=== PATIENT | female | born 1950 | race Caucasian/White ===

== ENCOUNTER 2019-02-02 08:09 | Outpatient (CLI) | payer MEDICARE, OTHER ==
--- NOTE | 2019-02-10 08:44 | Mammography Report ---
Reason: SCREENING MAMMO Procedure Date: 02/02/2019 Accession Number: [id number] / [id number] Procedure: BROCK - Screening Mammo w/[facility] CPT Code: FULL RESULT: EXAM: Screening Mammo w/[facility] DATE: 02/02/2019 8:56 AM CLINICAL HISTORY: Screening encounter. History of benign left breast biopsy. No reported risk factors. TECHNIQUE: (B) - Bilateral CC and MLO views were obtained. COMPARISON: 01/23/2016 through 10/23/2012. PARENCHYMAL PATTERN: (D) - The breasts demonstrate heterogeneously dense fibroglandular parenchyma bilaterally. FINDINGS: There are coarse typically benign calcifications. There are no suspicious masses, calcifications, or areas of distortion. IMPRESSION: Benign findings. BI-RADS category 2. RECOMMENDATION: (ANNUAL) - Recommend routine annual screening mammography. BI-RADS CATEGORY: (2) - Benign Findings. STANDARD QUALIFYING STATEMENTS: 1. This examination was not reviewed with the aid of Computer-Aided Detection (CAD). 2. A negative or benign imaging report should not preclude biopsy if clinically suspicious findings are present. 3. Dense breasts may obscure an underlying neoplasm. 4. This examination was reviewed with the aid of 3D breast imaging (tomosynthesis).
== END 2019-02-02 08:10 | disposition home or self-care (01) ==
LOC: DI 08:09
PROVIDERS: ATTEND Nurse Practitioner Family
DX: Z12.31 Encounter for screening mammogram for malignant neoplasm of breast (principal)
CPT/HCPCS: 77063; 77067

== ENCOUNTER 2019-02-02 08:12 | Outpatient (CLI) | payer MEDICARE, OTHER ==
--- NOTE | 2019-02-02 17:17 | DEXA Report ---
Reason: OSTEOPENIA, DISORDER OF BONE DENSITY STRUCTURE Procedure Date: 02/02/2019 Accession Number: [id number] / [id number] Procedure: DEX - Dexa Spine and/or Hip CPT Code: FULL RESULT: EXAM: Dexa Spine and/or Hip DATE: 02/02/2019 9:48 AM CLINICAL HISTORY: OSTEOPENIA, DISORDER OF BONE DENSITY STRUCTURE TECHNIQUE: Dual energy x-ray absorptiometry (DXA) was performed on a ML[employer] Squared System. Regions measured are the AP Spine, femoral neck, and if needed forearm. COMPARISON: None. In accordance with the International Society for Clinical Densitometry (ISCD) guidelines, data from previous exams may be reanalyzed using current recommendations and techniques. This is done to allow a more accurate basis for comparison with the current study. FINDINGS: The data for the lumbar spine is as follows: BMD (g/cm/cm) T-SCORE Z-SCORE REGION L1 1.018 -0.9 0.2 L2 0.875 -2.7 -1.5 L3 0.977 -1.9 -0.7 L4 0.847 -2.9 -1.8 TOTAL 0.924 -2.1 -1.0 NOTE: All evaluable vertebrae are used for classification The data for the hip is as follows: BMD (g/cm/cm) T-SCORE Z-SCORE REGION Neck 0.962 -0.5 0.8 TOTAL 1.028 0.2 1.2 NOTE: The femoral neck or total proximal femur, whichever is lowest, is used for classification. IMPRESSION: THE WHO CLASSIFICATION BASED ON THE INTERNATIONAL REFERENCE STANDARD IS OSTEOPENIA. THE FRACTURE RISK IS INCREASED. RECOMMENDATION: Patients with diagnosis of osteoporosis or osteopenia should have regular bone mineral density assessment. For those eligible for Medicare, routine testing is allowed once every 2 years. Testing frequency can be increased for patients who have rapidly progressing disease or for those who are receiving medical therapy to restore bone mass. COMMENT: World Health Organization (WHO) definitions for osteoporosis and osteopenia: NORMAL BMD: T-score at -1.0 or higher, fracture risk is low OSTEOPENIA BMD: T-score between -1.0 and -2.5, fracture risk is increased. OSTEOPOROSIS BMD: T-score at -2.5 or lower, fracture risk is high. National Osteoporosis Foundation recommends: 1. Obtain adequate dietary calcium (at least 1200 mg per day) and vitamin D (400-800 international units per day). 2. Participate, as appropriate, in regular weightbearing and muscle-strengthening exercise. 3. Avoid tobacco use and reduce alcohol and caffeine intake. 4. For more detailed information see the website at www.NOF.org.
== END 2019-02-02 08:13 | disposition home or self-care (01) ==
LOC: DI 08:12
PROVIDERS: ATTEND Nurse Practitioner Family
DX: M85.88 Other specified disorders of bone density and structure, other site (principal)
CPT/HCPCS: 77080

== ENCOUNTER 2021-03-25 21:27 | Outpatient (CLI) | payer MEDICARE, OTHER | END 2021-03-25 21:28 | disposition critical access hospital (66) | LOC: EMS 21:27 | DX: R11.10 Vomiting, unspecified (principal); R42 Dizziness and giddiness; H53.8 Other visual disturbances | CPT/HCPCS: A0425; A0427 ==

== ENCOUNTER 2021-03-25 21:56 | Emergency (ER) | payer MEDICARE, OTHER ==
[2021-03-25 23:12] LABS: BASOPHILS # (AUTO) 0.1 10^3/uL (0.0-0.1); BASOPHILS % (AUTO) 0.6 %; EOSINOPHILS # (AUTO) 0.4 10^3/uL (0.0-0.7); EOSINOPHILS % (AUTO) 3.2 %; HCT - HEMATOCRIT 39.6 % (37.0-47.0); HGB - HEMOGLOBIN 12.8 g/dL (12.0-16.0); LYMPHOCYTES # (AUTO) 1.5 10^3/uL (1.5-3.5); MEAN CORPUSCULAR HEMOGLOBIN 31.7 pg (27.0-31.0); MEAN CORPUSCULAR HGB CONC 32.3 g/dL (32.0-36.0); MEAN PLATELET VOLUME 9.8 fL (7.9-10.8); MONOCYTES # (AUTO) 0.7 10^3/uL (0.0-1.0); MONOCYTES % (AUTO) 5.3 %; NEUTROPHILS # (AUTO) 9.7 10^3/uL (1.5-6.6); NEUTROPHILS % (AUTO) 78.1 %; PLT - PLATELET COUNT 277 10^3/uL (130-450); RED BLOOD COUNT 4.04 10^6/uL (4.20-5.40); WHITE BLOOD COUNT 12.4 x10^3/uL (4.8-10.8)
[2021-03-25 23:24] LABS: ALBUMIN/GLOBULIN RATIO 1.4 (1.0-2.2); ALKALINE PHOSPHATASE 54 IU/L (42-121); ALT ALANINE AMINOTRANSFERASE 16 IU/L (10-60); AST ASPARTATE AMINOTRANSFERASE 14 IU/L (10-42); BILIRUBIN,TOTAL 0.6 mg/dL (0.2-1.0); BUN - BLOOD UREA NITROGEN 19 mg/dL (6-20); CALCIUM 8.9 mg/dL (8.5-10.3); CARBON DIOXIDE - CO2 25 mmol/L (21-32); CHLORIDE 104 mmol/L (101-111); CREATININE 0.9 mg/dL (0.4-1.0); ETOH - ETHANOL < 5.0 mg/dL; GFR - MDRD 62 (>89); GLUCOSE 132 mg/dL (70-100); LIPASE 38 U/L (22-51); POTASSIUM 3.9 mmol/L (3.5-5.0); SODIUM 140 mmol/L (135-145); TOTAL PROTEIN 6.8 g/dL (6.7-8.2)
[2021-03-26] MEDS ORDERED: SODIUM CHLORIDE 0.9% 1,000 ML IV STA (01:10)
--- NOTE | 2021-03-26 01:13 | ED Physician Documentation ---
PD HPI NVD - Stated complaint Stated Complaint: NAUSEA - Chief complaint Chief Complaint: Abd Pain - History obtained from History obtained from: Patient, EMS - History of Present Illness Timing - onset: Today Timing - duration: Hours Timing - details: Gradual onset, Now resolved Associated symptoms: Dizzy, Other (vomiting off balance) Contributing factors: Other (recent moving and recent GI illness about one week ago). No: Sick contact, Bad food, Recent antibiotics Improved by: Laying still Similar symptoms before: Has not had sx before Recently seen: Clinic - Additonal information Additional information: 70-year-old female reports that she had a routine annual physical exam done on 03/13/2021 and shortly thereafter became ill with a GI illness that lasted about 5 days. She is in the middle of moving and has been doing a lot of physical activity and she was otherwise feeling well in the past several days has been feeling normal. This evening she was knitting and she went to put her knitting away and go upstairs and she developed some odd sensation on the right side of her body and she developed some vomiting she felt dizzy and she called 911. When medics arrived they administered Zofran which resolved the patient's vomiting and she presented to the emergency department mildly somnolent and interacting. She subsequently has felt normal. PD PAST MEDICAL HISTORY - Past Medical History Past Medical History: Yes Cardiovascular: High cholesterol - Present Medications Home Medications: Ambulatory Orders Medication Instructions Recorded Confirmed Amox/Clav 875/125 [Augmentin] 1 each PO Q12H #20 tablet 03/26/21 - Allergies Allergies/Adverse Reactions: Allergies Allergy/AdvReac Type Severity Reaction Status Date / Time No Known Drug Allergies Allergy Verified 03/25/21 22:45 - Social History Does the pt smoke?: No Smoking Status: Never smoker Does the pt drink ETOH?: Yes ETOH Use: Wine Does the pt have substance abuse?: No PD ED PE NORMAL - Vitals Vital signs reviewed: Yes (tachy ) - General General: Alert and oriented X 3, No acute distress, Well developed/nourished - HEENT HEENT: Atraumatic, PERRL, EOMI - Neck Neck: Supple, no meningeal sign, No bony TTP - Cardiac Cardiac: No murmur, Other (tachy to 110 sitting up ) - Respiratory Respiratory: No respiratory distress, Clear bilaterally - Abdomen Abdomen: Soft, Non tender - Back Back: No CVA TTP, No spinal TTP - Derm Derm: Normal color, Warm and dry, No rash - Extremities Extremities: No deformity, No edema - Neuro Neuro: Alert and oriented X 3, 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, No motor deficit, No sensory deficit, Normal speech Eye Opening: Spontaneous Motor: Obeys Commands Verbal: Oriented GCS Score: 15 - Psych Psych: Normal mood, Normal affect Results - Vitals Vitals: Vital Signs - 24 hr 03/25/21 03/26/21 03/26/21 22:07 01:00 03:00 Temperature 36.4 C L Heart Rate 109 H 95 91 Respiratory 16 18 15 Rate Blood Pressure 128/75 121/77 116/74 O2 Saturation 94 97 94 03/26/21 04:16 Temperature 36.8 C Heart Rate 90 Respiratory 16 Rate Blood Pressure 115/76 O2 Saturation 95 Oxygen O2 Source Room air - EKG (time done) 0148 Rate: Rate (enter#) (93) Rhythm: NSR Ischemia: Normal ST segments Compare to prior EKG: Old EKG unavailable Computer interpretation: Agree with computer - Labs Labs: Laboratory Tests 03/25/21 03/25/21 11:06 11:06 WBC 12.4 H RBC 4.04 L Hgb 12.8 Hct 39.6 MCV 98.0 MCH 31.7 H MCHC 32.3 RDW 13.0 Plt Count 277 MPV 9.8 Neut # (Auto) 9.7 H Lymph # (Auto) 1.5 Luce # (Auto) 0.7 Eos # (Auto) 0.4 Baso # (Auto) 0.1 Absolute Nucleated RBC 0.00 Nucleated RBC % 0.0 Sodium 140 Potassium 3.9 Chloride 104 Carbon Dioxide 25 Anion Gap 11.0 BUN 19 Creatinine 0.9 Estimated GFR (MDRD) 62 L Glucose 132 H Calcium 8.9 Total Bilirubin 0.6 AST 14 ALT 16 Alkaline Phosphatase 54 Total Protein 6.8 Albumin 4.0 Globulin 2.8 Albumin/Globulin Ratio 1.4 Lipase 38 Ethyl Alcohol < 5.0 - Rads (name of study) CT head without Radiology: Prelim report reviewed (Impression: 1. No acute intracranial bleed. Nonspecific right mastoid opacification. Ethmoid and sphenoid sinusitis.), EMP read indepedently, See rad report Procedures - IVC sono (time) 0105 Bedside IVC sono: IVC measures (cm) (0.91), Dehydration (est 2 liter deficit (500ml already given)) PD MEDICAL DECISION MAKING - ED course Complexity details: reviewed old records, reviewed results, re-evaluated patient, considered differential, d/w patient ED course: 78-year-old female with a episode of vague symptomatology has resolution of her symptoms while she is here in the emergency department without treatment. She is found to be a bit tachycardic on evaluation and interrogation the inferior vena cava reveals dehydration on the order of 2 L. She is administered intravenous saline and as part of the work-up a CT scan of the patient's head was obtained and this demonstrated both ethmoid and sphenoid sinusitis. My experience with sphenoid sinusitis is odd presentations and I suspect this may be the culprit in today's presentation is coupled with a degree of dehydration. The patient has been working moving out of her house and she has traveled to [place] in the past 2 days as well. She has been quite busy. Had a number department she is treated further with dexamethasone and Rocephin for treatment of the sphenoid sinusitis. She feels well at discharge. Departure - Departure Disposition: 01 Home, Self Care Clinical Impression: Dehydration Sphenoid sinusitis Qualifiers: Chronicity: acute Recurrence: not specified as recurrent Qualified Code(s): J01.30 - Acute sphenoidal sinusitis, unspecified Condition: Stable Instructions: ED Dehydration, ED Sinusitis Abx Tx Follow-Up: HAYDEE ROSADO ARNP [Primary Care Provider] - Prescriptions: Amox/Clav 875/125 [Augmentin] 1 each PO Q12H #20 tablet Discharge Date/Time: 03/26/21 04:17
[2021-03-26] MEDS ORDERED: DEXAMETHASONE 10 MG/ML VIAL IVP STA (02:46)
[2021-03-26] MEDS ORDERED: cefTRIAXone 1 GM in SODIUM CHLORIDE 0.9% MINIBAG 100 ML IV STA (02:46)
[2021-03-26] MEDS ORDERED: cefTRIAXone 1 GM VIAL ONE (03:03)
[2021-03-26 04:17] VITALS: BP 115/76
--- NOTE | 2021-03-26 07:25 | CT Report ---
PROCEDURE: HEAD WO INDICATIONS: right sided symptoms TECHNIQUE: Noncontrast 4.5 mm thick angled axial sections acquired from the foramen magnum to the vertex. For r adiation dose reduction, the following was used: automated exposure control, adjustment of mA and/or kV according to patient size. COMPARISON: None. FINDINGS: Image quality: Excellent. CSF spaces: Basal cisterns are patent. No extra-axial fluid collections. Ventricles are normal in size and shape. Brain: No midline shift. No intracranial masses or hemorrhage. Law-white matter interface is norm al. Skull and face: Calvarium and visualized facial bones are intact, without suspicious lesions. Sinuses: Mucosal thickening noted in the right sphenoid sinus and the ethmoid air cells.Mucous retent ion cyst versus polyp noted in the left sphenoid sinus. The right mastoids are opacified. Left mastoi ds are clear IMPRESSION: 1. No acute intracranial disease process. 2. Opacification of the right mastoid air cells. Recommend correlation with physical findings to excl ude mastoiditis. Reviewed by: Charlotte Snyder MD, PhD on 03/26/2021 7:24 AM PDT Approved by: Charlotte Snyder MD, PhD on 03/26/2021 7:24 AM PDT Station ID: [id number]
== END 2021-03-26 04:17 | disposition home or self-care (01) ==
LOC: EDUNIT# → ED 21:56
DX: J01.30 Acute sphenoidal sinusitis, unspecified (principal); J01.20 Acute ethmoidal sinusitis, unspecified; E86.0 Dehydration; R00.0 Tachycardia, unspecified; J32.2 Chronic ethmoidal sinusitis
CPT/HCPCS: 36415; 70450; 80053; 83690; 85025; 93005; 96361; 96374; 96375; 99281; 99284; G0480; 80320

== ENCOUNTER 2022-05-15 15:30 | Outpatient (CLI) | payer MEDICARE, OTHER ==
--- NOTE | 2022-05-15 16:49 | DEXA Report ---
PROCEDURE: Dexa Spine and/or Hip INDICATIONS: OSTEOPENIA TECHNIQUE: Dual energy x-ray absorptiometry (DXA) was performed on a [employer] System. Regions measur ed are the AP Spine, femoral neck, and if needed forearm. COMPARISON: None. FINDINGS: Lumbar Spine: Bone Mineral Density 1.0 g/cm/cm,T score of 1.4, osteopenia Left Hip: Bone Mineral Density 1.1 g/cm/cm,T score 0.4, normal bone density Impression: 1. Lumbar spine osteopenia. 2. Normal left hip bone density. Patients with diagnosis of osteoporosis or osteopenia should have regular bone mineral density assess ment. For those eligible for Medicare, routine testing is allowed once every 2 years. Testing frequ ency can be increased for patients who have rapidly progressing disease or for those who are receivin g medical therapy to restore bone mass. Reviewed by: Tiera Childers MD on 05/15/2022 4:47 PM PDT Approved by: Tiera Childers MD on 05/15/2022 4:47 PM PDT Station ID: [id number]
== END 2022-05-15 23:59 | disposition home or self-care (01) ==
LOC: DI 15:30
PROVIDERS: ATTEND Nurse Practitioner Family
DX: M85.88 Other specified disorders of bone density and structure, other site (principal)